=== PATIENT | female | born 1955 | race Two or more races ===

== ENCOUNTER 2025-06-07 20:44 | Inpatient (IN) | payer MEDICARE, OTHER ==
[~2025-06-07] VITALS: Ht 162.6 cm; Wt 75.3 kg
[2025-06-07] MEDS ORDERED: ONDANSETRON HCL/PF 4 MG/2 ML VIAL ONE (21:11)
[2025-06-07] MEDS: ONDANSETRON HCL/PF 4 MG/2 ML VIAL IVP ONE (21:15)
[2025-06-07] MEDS: IV NS 0.9% 1,000 ML BAG IV ONE (21:15)
[2025-06-07 21:30] LABS: PLATELET COUNT (AUTO) 130 K/uL (150-450); RED BLOOD CELL COUNT(AUTO) 3.64 MIL/uL (4.0-5.2); RED CELL DISTRIBUTION WIDTH 15.4 % (11.5-15.0); WHITE BLOOD COUNT (AUTO) 12.0 K/uL (4.3-11.0)
[2025-06-07 21:41] LABS: SERUM AMMONIA 5 umol/L (11-32)
[2025-06-07 21:51] LABS: CALCIUM, SERUM 9.0 mg/dL (8.5-10.1); CREATININE 2.9 mg/dL (0.6-1.3); SODIUM SERUM 134 mmol/L (136-145); UREA NITROGEN, BLOOD 64 mg/dL (7-18)
[2025-06-07 21:57] LABS: ASPARTATE AMINOTRANSFERASE 16 U/L (15-37); TOTAL PROTEIN, SERUM 8.0 g/dL (6.4-8.2)
[2025-06-07 23:22] LABS: APPEARANCE,URINE SLIGHTLY CLOUDY (CLEAR); BLOOD, URINE 3+ Ery/uL (NEGATIVE); LEUKOCYTE ESTERASE ,URINE 2+ (NEGATIVE); NITRITE, URINE POSITIVE (NEGATIVE); UGLUCOSE 3+ mg/dL (NEGATIVE)
[2025-06-07 23:41] LABS: ADD URINE CULTURE YES
[2025-06-08] MEDS ORDERED: PANT40TA49 PO (04:58)
[2025-06-08] MEDS ORDERED: ALLO300T2 PO (04:58)
[2025-06-08] MEDS ORDERED: PIOG15TA8 PO (04:58)
[2025-06-08] MEDS ORDERED: SPIR25TA6 PO (04:58)
[2025-06-08] MEDS ORDERED: SACU1TAB7 PO (04:58)
[2025-06-08] MEDS ORDERED: DAPA10TA PO (04:58)
[2025-06-08] MEDS ORDERED: METO50TA16 PO (04:58)
[2025-06-08] MEDS ORDERED: GABA-532 PO (04:58)
[2025-06-08] MEDS ORDERED: LEVO100T9 PO (04:58)
[2025-06-08] MEDS ORDERED: ROSU20TA2 PO (04:58)
[2025-06-08] MEDS ORDERED: AMLO-555 PO (04:58)
[2025-06-08] MEDS ORDERED: SEMA1PEN SQ (04:58)
[2025-06-08 08:00] VITALS: BP 108/58; TEMP 99.3; O2SAT 96
[2025-06-08] MEDS ORDERED: ACETAMINOPHEN 325 MG TABLET PO PRN (08:00)
[2025-06-08] MEDS ORDERED: ONDANSETRON HCL/PF 4 MG/2 ML VIAL IV PRN (08:00)
[2025-06-08] MEDS: IV NS 0.9% 1,000 ML IV PRN (08:15)
[2025-06-08] MEDS ORDERED: MAG HYDROX/AL HYDROX/SIMETH 30 ML UDC PO PRN (08:30)
[2025-06-08] MEDS ORDERED: ZOLPIDEM TARTRATE 5 MG TABLET PO PRN (08:30)
[2025-06-08] MEDS ORDERED: ONDANSETRON HCL/PF 4 MG/2 ML VIAL IVP PRN (08:30)
[2025-06-08] MEDS ORDERED: MAGNESIUM HYDROXIDE 30 ML UDC PO PRN (08:30)
[2025-06-08] MEDS ORDERED: Z GUARD REMEDY 4 OZ OINT TP PRN (08:30)
[2025-06-08] MEDS: ATORVASTATIN 40 MG TABLET PO SCH (08:59)
[2025-06-08] MEDS: GABAPENTIN 100 MG CAPSULE PO SCH (08:59)
[2025-06-08] MEDS: CEFTRIAXONE 1 G in IV D5W 50 ML IV SCH (08:59)
[2025-06-08] MEDS ORDERED: *INSULIN REGULAR(HUMULIN R)HUM 100 UNIT/ML VIAL SQ PRN (09:00)
[2025-06-08] MEDS: LEVOTHYROXINE SODIUM 100 MCG TABLET PO SCH (09:00)
[2025-06-08] MEDS ORDERED: DEXTROSE 50%-WATER 50 ML DISP.SYRIN IV PRN (09:00)
[2025-06-08] MEDS: PIOGLITAZONE HCL 15 MG TABLET PO SCH (09:00)
[2025-06-08] MEDS ORDERED: CEFTRIAXONE 1 G in IV D5W 50 ML IV SCH (09:00)
[2025-06-08] MEDS: PANTOPRAZOLE 40 MG TABLET.DR PO SCH (09:00)
[2025-06-08] MEDS: METOPROLOL TARTRATE 50 MG TABLET PO SCH (09:06)
[2025-06-08] MEDS: DAPAGLIFLOZIN PROPANEDIOL 10 MG TABLET PO SCH (09:48)
[2025-06-08] MEDS: IV 1/2NS 1000 ML 1,000 ML IV PRN (10:56)
[2025-06-08 12:00] VITALS: BP 105/58; TEMP 99.5; O2SAT 96
[2025-06-08] MEDS: BLOOD SUGAR DIAGNOSTIC 1 EACH STRIP VI SCH (12:45)
[2025-06-08] MEDS: INSULIN REGULAR, HUMAN 100 UNIT/ML 3 ML VIAL SQ PRN (12:45)
[2025-06-08 16:00] VITALS: BP 104/57; TEMP 98.4; O2SAT 96
[2025-06-08 20:00] VITALS: BP 111/63; TEMP 98.8; O2SAT 94
[2025-06-09] VITALS: BP 105/61; TEMP 98.6; O2SAT 95
[2025-06-09] MEDS: ACETAMINOPHEN 325 MG TABLET PO PRN (00:47)
[2025-06-09 04:00] VITALS: BP 98/64; TEMP 98.6; O2SAT 95
[2025-06-09 06:20] LABS: PLATELET COUNT (AUTO) 137 K/uL (150-450); RED BLOOD CELL COUNT(AUTO) 3.66 MIL/uL (4.0-5.2); RED CELL DISTRIBUTION WIDTH 15.2 % (11.5-15.0); WHITE BLOOD COUNT (AUTO) 7.4 K/uL (4.3-11.0)
[2025-06-09 06:39] LABS: CALCIUM, SERUM 9.6 mg/dL (8.5-10.1); CREATININE 2.0 mg/dL (0.6-1.3); PHOSPHORUS 3.1 mg/dL (2.5-4.9); SODIUM SERUM 140.0 mmol/L (136-145); UREA NITROGEN, BLOOD 42.0 mg/dL (7-18)
[2025-06-09 07:07] LABS: LDL 40.0 mg/dL (0-99)
[2025-06-09 08:00] VITALS: BP 99/47; TEMP 98.1; O2SAT 95
[2025-06-09] MEDS: METOPROLOL TARTRATE 25 MG TABLET PO SCH (08:39)
[2025-06-09] MEDS ORDERED: LEVO500T90 PO (08:52)
[2025-06-09] MEDS ORDERED: METO25TA6 PO (08:52)
[2025-06-09 12:00] VITALS: BP 98/54; TEMP 98.2; O2SAT 95
[2025-06-09 16:00] VITALS: BP 101/56; TEMP 97.9; O2SAT 95
[2025-06-09 16:50] VITALS: BP 99/48
== END 2025-06-09 20:12 | disposition home or self-care (01) | DRG 682 ==
LOC: ER 21:02 → TELE 06-08 05:48 → TELE1 06-08 06:30 → MEDSG1 06-09 08:48
PROVIDERS: ADMIT Internal Medicine; ATTEND Internal Medicine
DX: N17.0 Acute kidney failure with tubular necrosis (principal); L89.153 Pressure ulcer of sacral region, stage 3; N39.0 Urinary tract infection, site not specified; I13.0 Hypertensive heart and chronic kidney disease with heart failure and stage 1 through stage 4 chronic kidney disease, or unspecified chronic kidney disease; E44.0 Moderate protein-calorie malnutrition; E86.0 Dehydration; Z90.710 Acquired absence of both cervix and uterus; E89.0 Postprocedural hypothyroidism; I50.9 Heart failure, unspecified; N18.9 Chronic kidney disease, unspecified; E11.22 Type 2 diabetes mellitus with diabetic chronic kidney disease; D64.9 Anemia, unspecified; M10.9 Gout, unspecified; Z86.73 Personal history of transient ischemic attack (TIA), and cerebral infarction without residual deficits; Z88.0 Allergy status to penicillin; Z88.2 Allergy status to sulfonamides; E78.5 Hyperlipidemia, unspecified; L98.8 Other specified disorders of the skin and subcutaneous tissue; Z68.28 Body mass index [BMI] 28.0-28.9, adult; B96.89 Other specified bacterial agents as the cause of diseases classified elsewhere
CPT/HCPCS: 36415; 70450-TC; 71045-TC; 80048-TC; 80061-TC; 80076-TC; 81001; 82140-TC; 83690-TC; 83735-TC; 84100-TC; 84484-TC; 85025-TC; 87081-TC; 87086-TC; 87186-TC; 93307-TC; A4223; G0378; J0696; J1815; J2405; J3490; J7030; J7060